=== PATIENT | male | born 1990 | race Caucasian/White ===

== ENCOUNTER 2024-02-27 19:15 | Emergency (ER) | payer SELFPAY ==
[2024-02-27] MEDS ORDERED: Cefepime 2 GM VIAL ONE (20:55)
[2024-02-27 21:13] LABS: #Basophils 0.04 10x3/uL (0.0-0.2); #Eosinophils 0.07 10x3/uL (0.0-0.5); #Monocytes 1.28 10x3/uL (0.0-1.1); #Neutrophils 8.32 10x3/uL (1.5-8.4); %Basophils 0.4 % (0.0-2.0); %Eosinophils 0.7 % (0.0-6.0); %Lymphocytes 6.6 % (18.0-47.0); %Monocytes 12.3 % (0.0-10.0); %Neutrophils 79.6 % (40.0-75.0); Hematocrit 42.3 % (38.8-50.0); Hemoglobin 14.6 g/dL (13.5-17.5); Mean Corpuscular HGB CONC 34.5 g/dL (32.0-36.0); Mean Corpuscular Volume 83.9 fL (81.2-95.1); Mean Platelet Volume 9.2 fL (7.4-10.4); Platelet Count 284 10x3/uL (150-450); Red Blood Cell (RBC) Count 5.04 10x6/uL (4.32-5.72); White Blood Cell (WBC) Count 10.4 10x3/uL (3.5-10.5)
[2024-02-27 21:28] LABS: ALT (SGPT) 29 U/L (8-55); AST (SGOT) 28 U/L (5-34); Albumin 3.6 g/dL (3.5-5.0); Alkaline Phosphatase 75 U/L (40-110); Anion Gap 14 mmol/L (10-20); BUN (Urea Nitrogen) 17 mg/dL (8.9-20.6); Bilirubin, Total 2.1 mg/dL (0.2-1.2); Calc. Creatinine Clearance 0 mL/min (70-130); Calcium 9.3 mg/dL (7.8-10.44); Carbon Dioxide 24 mmol/L (22-29); Chloride 104 mmol/L (98-107); Estimated GFR 122; Globulin 2.9 g/dL (2.4-3.5); Glucose 127 mg/dL (70-105); Magnesium 1.6 mg/dL (1.6-2.6); Potassium 3.8 mmol/L (3.5-5.1); Protein, Total 6.5 g/dL (6.0-8.3); Sodium 138 mmol/L (136-145)
[2024-02-27 21:33] LABS: Troponin I Less than 0.010 ng/mL (< 0.028)
[2024-02-27 21:47] LABS: HIV (1/2) Antibody/Antigen Non-Reactive (NonReactive); HIV 1/2 INDEX 0.13 S/CO (<1.00)
[2024-02-27] MEDS ORDERED: Vancomycin 2.25 GM in Sodium Chloride 0.9% 500 ML IVPB SCH (22:30)
[2024-02-27] MEDS ORDERED: Ketorolac Tromethamine 30 MG (1 mL) VIAL ONE (22:39)
[2024-03-02 13:13] LABS: QuantiFERON-TB Gold Plus Negative (Negative)
== END 2024-02-28 00:04 | disposition short-term general hospital (02) ==
LOC: CSHERS 19:15
DX: J18.9 Pneumonia, unspecified organism (principal); F17.290 Nicotine dependence, other tobacco product, uncomplicated; Z79.899 Other long term (current) drug therapy
CPT/HCPCS: 36415; 71045; 83605; 83735; 83880; 84484; 86480; 87040; 87389; 93005; 96374; 96375; J0692; J1885; J3370; J7030